=== PATIENT | male | born 1955 | race Caucasian/White ===

== ENCOUNTER 2016-09-12 14:30 | Emergency (ER) | payer SELFPAY ==
[~2016-09-12] VITALS: Ht 172.7 cm; Wt 68.8 kg
[~2016-09-12 14:30] MED LIST: ALBU1.25 NEB; ALBU18HF INH; ALBU2.5V NEB; ALBU2.5V NPPB; CEFD300C37 PO; DOXY100T PO; FLUT1DIS IH; FLUT1DIS3 INH; FLUT9.9S NAS; HYDR25TA6 PO; OMEP-110 PO; OMEP20CA9 PO; PRED10TA PO; PREDNISONE; PREDNISONE PO
[2016-09-12 14:32] VITALS: BP 150/90
[2016-09-12] MEDS ORDERED: ALBU8.5H3 INH (15:26)
== END 2016-09-12 15:30 | disposition home or self-care (01) ==
LOC: ED 15:10
DX: Z76.0 Encounter for issue of repeat prescription (principal); J45.41 Moderate persistent asthma with (acute) exacerbation; J01.00 Acute maxillary sinusitis, unspecified
CPT/HCPCS: 99283

== ENCOUNTER 2016-09-30 06:40 | Emergency (ER) | payer SELFPAY ==
[~2016-09-30] VITALS: Ht 170.2 cm; Wt 68.1 kg
[~2016-09-30 06:40] MED LIST changes: +ALBU8.5H3 INH
[2016-09-30] MEDS ORDERED: ALBUTEROL/IPRATROPIUM 2.5MG/0.5MG, 3 ML ONE ×2 (07:19)
[2016-09-30] MEDS ORDERED: ALBUTEROL/IPRATROPIUM 2.5MG/0.5MG, 3 ML NPPB ONE (07:30)
[2016-09-30 07:47] LABS: BLOOD UREA NITROGEN 13 mg/dL (7-18)
[2016-09-30 09:07] VITALS: BP 117/84
== END 2016-09-30 09:09 | disposition home or self-care (01) ==
LOC: ED 07:07
DX: J45.41 Moderate persistent asthma with (acute) exacerbation (principal); I10 Essential (primary) hypertension; K21.9 Gastro-esophageal reflux disease without esophagitis
CPT/HCPCS: 36415; 71010; 80048; 82040; 85025; 93005; 94640; 99285; J7512; J7620

== ENCOUNTER 2016-12-05 05:46 | Inpatient (IN) | payer OTHER ==
[~2016-12-05] VITALS: Ht 171.4 cm; Wt 71.3 kg
[~2016-12-05 05:46] MED LIST changes: -ALBU8.5H3 INH; +ALBU8.5H8 INH
[2016-12-05] MEDS ORDERED: methylPREDNISolone SOD SUCC 125 MG/2 ML ONE (05:48)
[2016-12-05] MEDS ORDERED: MAGNESIUM SULFATE PMX 2GM/50ML 50 ML IV ONE (06:00)
[2016-12-05] MEDS ORDERED: SODIUM CHLORIDE FLUSH 10ML SYR IVF ONE (06:00)
[2016-12-05] MEDS ORDERED: methylPREDNISolone SOD SUCC 125 MG/2 ML IVP ONE (06:00)
[2016-12-05] MEDS ORDERED: ALBUTEROL/IPRATROPIUM 2.5MG/0.5MG, 3 ML ONE ×3 (06:01→07:57)
[2016-12-05] MEDS: ALBUTEROL/IPRATROPIUM 2.5MG/0.5MG, 3 ML NPPB SCH ×5 (06:02→17:00)
[2016-12-05 06:07] LABS: HEMATOCRIT 48.3 % (39.2-51.8); HEMOGLOBIN 16.6 g/dL (13.7-18.0); WHITE BLOOD COUNT 11.5 x10^3/uL (3.4-10)
[2016-12-05] MEDS ORDERED: LORazepam 2 MG/ML, 1ML ONE (06:07)
[2016-12-05 06:15] LABS: BLOOD UREA NITROGEN 14 mg/dL (7-18)
[2016-12-05 06:19] LABS: IS PT STATUS REG ER OR PRE ER? YES
[2016-12-05] MEDS ORDERED: LORazepam 2 MG/ML, 1ML IVPush ONE (06:30)
[2016-12-05] MEDS ORDERED: CEFTRIAXONE PMX 1GM/50ML 50 ML IV ONE (07:00)
[2016-12-05] MEDS ORDERED: CEFTRIAXONE PMX 1GM/50ML 50 ML ONE (07:56)
[2016-12-05] MEDS ORDERED: ENOXAPARIN 40 MG/0.4 ML ONE (07:56)
[2016-12-05] MEDS: ENOXAPARIN 40 MG/0.4 ML SQ SCH (07:58)
[2016-12-05] MEDS ORDERED: BISACODYL 10 MG SUPP PR PRN (08:00)
[2016-12-05] MEDS ORDERED: POLYETHYLENE GLYCOL 17 GM PACKET PO PRN (08:00)
[2016-12-05] MEDS ORDERED: HYDROcodone/APAP 5/325 TABLET PO PRN (08:00)
[2016-12-05] MEDS ORDERED: DOCUSATE 100 MG CAPSULE PO PRN (08:00)
[2016-12-05 08:42] VITALS: BP 110/76
[2016-12-05] MEDS ORDERED: POTASSIUM CHLORIDE 20 MEQ TAB.ER.PRT PO ONE (09:30)
[2016-12-05] MEDS: methylPREDNISolone SOD SUCC 125 MG/2 ML IVPush SCH ×3 (11:22→23:03)
[2016-12-05] MEDS: FAMOTIDINE 20 MG TABLET PO SCH ×2 (11:44→20:18)
[2016-12-06 04:00] VITALS: BP 125/78
[2016-12-06 04:29] LABS: BLOOD UREA NITROGEN 20 mg/dL (7-18)
[2016-12-06 04:33] LABS: HEMATOCRIT 45.8 % (39.2-51.8); HEMOGLOBIN 15.8 g/dL (13.7-18.0); WHITE BLOOD COUNT 22.1 x10^3/uL (3.4-10)
[2016-12-06] MEDS ORDERED: ALBUTEROL/IPRATROPIUM 2.5MG/0.5MG, 3 ML ONE (05:20)
[2016-12-06] MEDS: methylPREDNISolone SOD SUCC 125 MG/2 ML IVPush SCH (05:52)
[2016-12-06] MEDS: ALBUTEROL/IPRATROPIUM 2.5MG/0.5MG, 3 ML NPPB SCH ×4 (07:20→18:41)
[2016-12-06] MEDS: FAMOTIDINE 20 MG TABLET PO SCH ×2 (08:39→21:03)
[2016-12-06] MEDS: ENOXAPARIN 40 MG/0.4 ML SQ SCH (08:39)
[2016-12-06] MEDS: methylPREDNISolone SOD SUCC 40 MG/ML IV SCH ×3 (09:36→21:03)
[2016-12-07] MEDS: methylPREDNISolone SOD SUCC 40 MG/ML IV SCH ×4 (03:08→22:26)
[2016-12-07 04:00] VITALS: BP 119/81
[2016-12-07 04:58] LABS: HEMATOCRIT 44.3 % (39.2-51.8); WHITE BLOOD COUNT 24.3 x10^3/uL (3.4-10)
[2016-12-07 05:06] LABS: BLOOD UREA NITROGEN 26 mg/dL (7-18)
[2016-12-07] MEDS: ALBUTEROL/IPRATROPIUM 2.5MG/0.5MG, 3 ML NPPB SCH ×4 (06:51→19:09)
[2016-12-07] MEDS: FAMOTIDINE 20 MG TABLET PO SCH ×2 (10:50→22:26)
[2016-12-07] MEDS: ENOXAPARIN 40 MG/0.4 ML SQ SCH (10:50)
[2016-12-07 20:00] VITALS: BP 105/77
[2016-12-08 02:00] VITALS: BP 120/79
[2016-12-08] MEDS: methylPREDNISolone SOD SUCC 40 MG/ML IV SCH ×3 (04:11→16:00)
[2016-12-08 06:11] LABS: HEMATOCRIT 41.3 % (39.2-51.8); WHITE BLOOD COUNT 18.6 x10^3/uL (3.4-10)
[2016-12-08 06:18] LABS: BLOOD UREA NITROGEN 24 mg/dL (7-18)
[2016-12-08 06:50] VITALS: BP 122/80
[2016-12-08] MEDS: ALBUTEROL/IPRATROPIUM 2.5MG/0.5MG, 3 ML NPPB SCH ×3 (06:55→14:41)
[2016-12-08] MEDS: ENOXAPARIN 40 MG/0.4 ML SQ SCH (09:36)
[2016-12-08] MEDS: FAMOTIDINE 20 MG TABLET PO SCH (09:36)
[2016-12-08 12:10] VITALS: BP 106/65
[2016-12-08] MEDS ORDERED: PRED5TAB PO (17:05)
[2016-12-08] MEDS ORDERED: DUONEB (17:09)
[2016-12-08] MEDS ORDERED: ALBU18HF INH (17:11)
== END 2016-12-08 17:32 | disposition home or self-care (01) | DRG 189 ==
LOC: ED 07:11 → EDIP 07:12 → ED 07:20 → CCU 08:29 → 4EST 12-07 16:15 → DCLOUNGE 12-08 17:01
PROVIDERS: ADMIT Hospitalist; ATTEND Hospitalist
PROC: 5A09357 Assistance with Respiratory Ventilation, Less than 24 Consecutive Hours, Continuous Positive Airway Pressure (ICD-10-PCS; principal; 2016-12-05)
DX: J96.00 Acute respiratory failure, unspecified whether with hypoxia or hypercapnia (principal); Z99.11 Dependence on respirator [ventilator] status; J44.1 Chronic obstructive pulmonary disease with (acute) exacerbation; J45.901 Unspecified asthma with (acute) exacerbation; K21.9 Gastro-esophageal reflux disease without esophagitis; D72.829 Elevated white blood cell count, unspecified; I10 Essential (primary) hypertension; E87.6 Hypokalemia; Z79.899 Other long term (current) drug therapy; Z87.891 Personal history of nicotine dependence
CPT/HCPCS: 36415; 71010; 80048; 82040; 83605; 83880; 84145; 84484; 85025; 87040; 87081; 93005; 94640; 94660; 96365; 96366; 96367; 96372; J0696; J1650; J7620; J2060; J2920; J2930; J3475

== ENCOUNTER 2017-04-27 06:10 | Observation (INO) | payer MEDICAID ==
[~2017-04-27] VITALS: Ht 167.6 cm; Wt 69.4 kg
[~2017-04-27 06:10] MED LIST changes: +DUONEB; +PRED5TAB PO
[2017-04-27] MEDS ORDERED: ALBUTEROL/IPRATROPIUM 2.5MG/0.5MG, 3 ML ONE (06:29)
[2017-04-27] MEDS ORDERED: MAGNESIUM SULFATE PMX 2GM/50ML 50 ML IV ONE (06:30)
[2017-04-27] MEDS ORDERED: SODIUM CHLORIDE FLUSH 10ML SYR IVF ONE (06:30)
[2017-04-27] MEDS ORDERED: LORazepam 2 MG/ML, 1ML IVPush ONE (06:30)
[2017-04-27] MEDS ORDERED: methylPREDNISolone SOD SUCC 125 MG/2 ML IVP ONE (06:30)
[2017-04-27] MEDS ORDERED: ALBUTEROL 0.5%, 20ML NPPB SCH (06:30)
[2017-04-27] MEDS ORDERED: ALBUTEROL 0.5%, 20ML ONE (06:32)
[2017-04-27] MEDS ORDERED: methylPREDNISolone SOD SUCC 125 MG/2 ML ONE (06:39)
[2017-04-27] MEDS ORDERED: LORazepam 2 MG/ML, 1ML ONE (06:39)
[2017-04-27 06:51] LABS: BASOPHILS # (AUTO) 0.05 x10^3/uL (0-0.1); BASOPHILS % (AUTO) 1 % (0-1); EOSINOPHILS # (AUTO) 0.66 x10^3/uL (0-0.4); EOSINOPHILS % (AUTO) 8 % (1-7); LYMPHOCYTES # (AUTO) 2.55 x10^3/uL (1-3.4); LYMPHOCYTES % (AUTO) 32 % (22-44); MD NO; MEAN CORPUSCULAR HEMOGLOBIN 31.3 pg (27.5-34.5); MEAN CORPUSCULAR HGB CONC 33.5 g/dL (33.2-36.2); MEAN CORPUSCULAR VOLUME 93.6 fL (81-97); MEAN PLATELET VOLUME 8.5 fL (7.4-10.4); MONOCYTES # (AUTO) 0.65 x10^3/uL (0.2-0.8); MONOCYTES % (AUTO) 8 % (2-9); NEUTROPHILS # (AUTO) 4.06 x10^3/uL (1.8-6.8); NEUTROPHILS % (AUTO) 51 % (42-75); PLATELET COUNT 306 x10^3/uL (130-400); RED BLOOD COUNT 5.25 x10^6/uL (4.38-5.82); RED CELL DISTRIBUTION WIDTH 13.4 % (9.4-14.8)
[2017-04-27 06:52] LABS: RAPID INFLUENZA A Negative (Negative); RAPID INFLUENZA B Negative (Negative)
[2017-04-27 07:04] LABS: ALBUMIN 3.8 g/dL (3.4-5.0); ANION GAP 10 mmol/L (5-15); CALCIUM 8.4 mg/dL (8.5-10.1); CHLORIDE 107 mmol/L (98-107); CREATININE 1.13 mg/dL (0.7-1.3)
[2017-04-27 07:08] LABS: TROPONIN I < 0.015 ng/mL (0.000-0.045)
[2017-04-27] MEDS ORDERED: POLYETHYLENE GLYCOL 17 GM PACKET PO PRN (09:30)
[2017-04-27] MEDS ORDERED: ENALAPRILAT 1.25 MG/ML, 2ML IVPush PRN (09:30)
[2017-04-27] MEDS ORDERED: ALBUTEROL SULFATE HOMEMEDPO PRN (09:30)
[2017-04-27] MEDS ORDERED: DOCUSATE 100 MG CAPSULE PO PRN (09:30)
[2017-04-27] MEDS ORDERED: hydrALAzine 20 MG/ML, 1ML IVPush PRN (09:30)
[2017-04-27] MEDS ORDERED: BISACODYL 10 MG SUPP PR PRN (09:30)
[2017-04-27] MEDS ORDERED: ALBUTEROL/IPRATROPIUM 2.5MG/0.5MG, 3 ML NPPB PRN ×2 (09:30→13:00)
[2017-04-27] MEDS ORDERED: ONDANSETRON 2MG/ML, 2ML IVPush PRN (09:30)
[2017-04-27] MEDS ORDERED: ACETAMINOPHEN 325 MG TABLET PO PRN (09:30)
[2017-04-27] MEDS ORDERED: ALBUTEROL HFA 90 MCG/SPRAY INH PRN (10:00)
[2017-04-27] MEDS: ALBUTEROL/IPRATROPIUM 2.5MG/0.5MG, 3 ML NPPB SCH ×3 (11:00→19:49)
[2017-04-27] MEDS: FLUTICASONE/VILANTEROL 200-25MCG/INH INH SCH (11:24)
[2017-04-27] MEDS: HYDROCHLOROTHIAZIDE 25 MG TABLET PO SCH (11:24)
[2017-04-27] MEDS: methylPREDNISolone SOD SUCC 125 MG/2 ML IVPush SCH ×3 (11:24→23:19)
[2017-04-27] MEDS ORDERED: POTASSIUM CHLORIDE 20 MEQ TAB.ER.PRT PO ONE (15:00)
[2017-04-27 16:17] VITALS: BP 116/72
[2017-04-27 20:49] VITALS: BP 119/76
[2017-04-28 02:00] VITALS: BP 106/71
[2017-04-28 04:46] LABS: ANION GAP 8 mmol/L (5-15); CALCIUM 8.8 mg/dL (8.5-10.1); CHLORIDE 104 mmol/L (98-107)
[2017-04-28 04:57] LABS: CREATININE 1.12 mg/dL (0.7-1.3); THYROID STIMULATING HORMONE 0.413 mIU/L (0.358-3.740)
[2017-04-28 05:11] LABS: MEAN CORPUSCULAR HEMOGLOBIN 31.7 pg (27.5-34.5); MEAN CORPUSCULAR VOLUME 93.2 fL (81-97); MEAN PLATELET VOLUME 8.5 fL (7.4-10.4); PLATELET COUNT 303 x10^3/uL (130-400); RED BLOOD COUNT 4.83 x10^6/uL (4.38-5.82)
[2017-04-28] MEDS: methylPREDNISolone SOD SUCC 125 MG/2 ML IVPush SCH ×2 (05:39→11:00)
[2017-04-28 05:44] LABS: MD YES
[2017-04-28 05:46] LABS: BAND#(MANUAL) 0.39 x10^3/uL; BANDS%(MANUAL) 2 % (0-7); LYMPH#(MANUAL) 0.78 x10^3/uL (1-3.4); LYMPHS% (MANUAL) 4 % (22-44); MONOS#(MANUAL) 0.59 x10^3/uL (0.3-2.7); MONOS% (MANUAL) 3 % (2-9); SEG#(MANUAL) 17.75 x10^3/uL (1.8-6.8); SEGS% (MANUAL) 91 % (42-75)
[2017-04-28 05:47] LABS: <PLATELET ESTIMATE> ADEQUATE; <PLT MORPHOLOGY> NORMAL PLT MORPH; <RBC MORPHOLOGY> NORMAL
[2017-04-28] MEDS: ALBUTEROL/IPRATROPIUM 2.5MG/0.5MG, 3 ML NPPB SCH ×2 (07:00→11:00)
[2017-04-28] MEDS ORDERED: POTASSIUM CHLORIDE 20 MEQ TAB.ER.PRT PO ONE (07:30)
[2017-04-28 08:45] VITALS: BP 117/82
[2017-04-28] MEDS: HYDROCHLOROTHIAZIDE 25 MG TABLET PO SCH (10:24)
[2017-04-28] MEDS: FLUTICASONE/VILANTEROL 200-25MCG/INH INH SCH (10:24)
[2017-04-28] MEDS ORDERED: PRED10TA PO (10:48)
[2017-04-28] MEDS ORDERED: FLUT1BLS INH (10:48)
== END 2017-04-28 13:11 | disposition home or self-care (01) ==
LOC: ED 07:18 → EDIP 08:30 → INTOOBSV 08:30 → 3NE 10:18 → DCLOUNGE 04-28 12:41
PROVIDERS: ADMIT Internal Medicine; ATTEND Internal Medicine
DX: J45.901 Unspecified asthma with (acute) exacerbation (principal); J96.01 Acute respiratory failure with hypoxia; R00.1 Bradycardia, unspecified; E87.6 Hypokalemia; E87.2 Acidosis; I10 Essential (primary) hypertension; F17.290 Nicotine dependence, other tobacco product, uncomplicated
CPT/HCPCS: 36415; 71045; 80048; 82040; 83605; 83880; 84145; 84443; 84484; 85025; 87040; 87400; 93005; 94640; 96365; 96366; 96375; 96376; 99285; G0378; J2060; J2930; J3475; J7620